=== PATIENT | male | born 1950 | race American Indian/Alaskan Native ===

== ENCOUNTER 2017-07-03 19:09 | Emergency (ER) | payer MEDICARE ==
[2017-07-03 21:04] LABS: Bilirubin,Urine NEG (Negative); Blood,Urine SM (Negative); Ketones,Urine NEG (Negative); Leukocyte Esterase,Urine TR (Negative); Mucus,Urine FEW /HPF; Nitrite,Urine NEG (Negative); Urobilinogen,Urine < 2.0 mg/dL (<2.0)
[2017-07-04 06:26] LABS: Basophils % (Auto) 0.9 % (0.0-1.8); Eosinophils % (Auto) 2.5 % (0.0-4.3); Hematocrit 38.4 % (35.5-45.6); Hemoglobin 12.8 gm/dl (11.8-15.2); Mean Corpuscular HGB Conc 33 % (32-34); Mean Corpuscular Hemoglobin 30 pg (28-32); Mean Corpuscular Volume 88 fl (84-94); Platelet Count 244 K/mm3 (140-440); Red Blood Count 4.34 M/mm3 (3.65-5.03); Red Cell Distribution Width 14.3 % (13.2-15.2); White Blood Count 7.9 K/mm3 (4.5-11.0)
[2017-07-04 06:51] LABS: Albumin 3.5 g/dL (3.9-5); Albumin/Globulin Ratio 0.8 %; BUN/Creatinine Ratio 12.35; Bilirubin,Total 0.5 mg/dL (0.1-1.2); Calcium 8.6 mg/dL (8.4-10.2); Chloride 104.7 mmol/L (98-107); Potassium 4.5 mmol/L (3.6-5.0); Total Protein 7.7 g/dL (6.3-8.2)
[2017-07-04] MEDS ORDERED: CEPHULAC PO ONE (07:06)
[2017-07-04] MEDS ORDERED: NACL 0.9% 1000 ML 1,000 ML IV ONE (07:06)
--- NOTE | 2017-07-04 07:24 | Emergency Department Report ---
ED Abdominal Pain HPI - General Chief Complaint: Back Pain/Injury Stated Complaint: NO BM 3+DAYS/SENT BY PHYSICIAN Time Seen by Provider: 07/04/17 06:56 Source: patient, RN/MD Mode of arrival: Ambulatory Limitations: Physical Limitation - History of Present Illness Initial Comments: 66-year-old male with a past medical history diabetes, HIV (CD4/viral load unknown), and hypertension presents to the hospital complaining of inability have a bowel movement 3 days and unable to urinate in 2 days. Patient took Epsom salts without improvement. Greater generalized abdominal pain rated 10/ 10 intensity for, patient is not in any acute distress. Denies nausea, vomiting , or fever. Denies previous abdominal surgeries or previous difficulty urinating. Mild dysuria reported. Sent by PMD for evaluation Severity scale (0 -10): 10 - Related Data Previous Rx's Medication Instructions Recorded Last Taken Type Polyethylene Glycol 3350 [Miralax 17 gm PO QDAY PRN #7 packet 07/04/17 Unknown Rx 3350] Allergies Allergy/AdvReac Type Severity Reaction Status Date / Time No Known Allergies Allergy Unverified 07/03/17 20:05 ED Review of Systems ROS: Stated complaint: NO BM 3+DAYS/SENT BY PHYSICIAN Other details as noted in HPI Comment: All other systems reviewed and negative Other: Constitutional: No fevers chills Eyes: No eye pain visual changes or discharge ENT: No ear pain or throat pain Neck: Denies pain Respiratory: Denies cough wheezing shortness of breath Cardiovascular: Denies chest pain, palpitations, syncope GI: As per HPI : As per HPI Musculoskeletal: Denies back pain, joint swelling Skin: Denies rash, lesions, erythema Neurologic: Denies headache, numbness, weakness Psychiatric: Denies suicidal ideation, hallucinations Hematological/lymphatic: Denies easy bruising, lymphadenopathy ED Past Medical Hx - Past Medical History Previous Medical History?: Yes Hx Hypertension: Yes Hx Diabetes: Yes Hx Headaches / Migraines: Yes Hx HIV: Yes - Surgical History Past Surgical History?: Yes Additional Surgical History: VNS stimulator removed - Social History Smoking Status: Current Every Day Smoker Substance Use Type: None - Medications Home Medications: Home Medications Medication Instructions Recorded Confirmed Last Taken Type Polyethylene Glycol 3350 [Miralax 17 gm PO QDAY PRN #7 packet 07/04/17 Unknown Rx 3350] ED Physical Exam - General Limitations: Physical Limitation - Other Other exam information: General: No limitations, patient is alert in no acute distress Head exam: Atraumatic, normocephalic Eyes exam: Normal appearance ENT: Moist mucous membrane, normal oropharynx Neck exam: Normal inspection, full range of motion, no meningismus nontender Respiratory exam: Clear to auscultation bilateral, no wheezes, rales, crackles Cardiovascular: Normal rate and rhythm, normal heart sounds Abdomen: Soft, nondistended, mild generalized tenderness, increased bowel sounds , no rebound or guarding : Gee catheter placed prior to arrival with initial output documented as 30 mL by R in Extremity: Full range of motion normal inspection no deformity Back: Normal Inspection, full range of motion, no tenderness Neurologic: Alert, oriented x3, cranial nerves intact, no motor or sensory deficit Psychiatric: normal affect, normal mood Skin: Warm, dry, intact ED Course Vital Signs 07/03/17 07/03/17 07/04/17 19:40 20:05 03:26 Temperature 98.6 F 98.6 F Pulse Rate 88 88 78 Respiratory 18 18 17 Rate Blood Pressure 128/82 Blood Pressure 128/82 [Right] O2 Sat by Pulse 100 100 100 Oximetry 07/04/17 07/04/17 07/04/17 03:31 03:45 03:53 Temperature Pulse Rate 77 75 Respiratory 16 13 16 Rate Blood Pressure 123/70 123/70 Blood Pressure [Right] O2 Sat by Pulse 99 100 98 Oximetry 07/04/17 07/04/17 07/04/17 04:01 04:18 05:00 Temperature Pulse Rate 71 75 75 Respiratory 18 21 17 Rate Blood Pressure 141/76 132/58 Blood Pressure 141/76 [Right] O2 Sat by Pulse 98 99 Oximetry 07/04/17 06:01 Temperature Pulse Rate 74 Respiratory 20 Rate Blood Pressure 132/58 Blood Pressure [Right] O2 Sat by Pulse 97 Oximetry - Reevaluation(s) Reevaluation #1: 07/04/17 10:44 Patient received a soapsuds enema and lactulose. Patient had had little to no stool output but pt had whole pecans come out of rectum which he said he ate last week. Patient received 1 L of normal saline and regular insulin with improvement and glucose - Consultations Consultation #1: 07/04/17 10:42 This was discussed with patient's primary care doctor Dr. Morton. She last saw pt on June 26. Suspect that patient call the office and was advised to come to the ED versus being seen. Last lab work from June 26 shows normal renal function and bicarbonate. She was therefore of patient's ED workup including renal sufficiency, bicarbonate 17, an unremarkable imaging studies and urine cath result. She recommends follow-up on Saturday. Copy of labs and imaging studies will be provided for follow-up visit. ED Medical Decision Making - Lab Data Result diagrams: 07/04/17 05:58 07/04/17 05:58 Lab Results 07/03/17 07/04/17 07/04/17 Range/Units 20:50 05:58 05:58 WBC 7.9 (4.5-11.0) K/mm3 RBC 4.34 (3.65-5.03) M/mm3 Hgb 12.8 (11.8-15.2) gm/dl Hct 38.4 (35.5-45.6) % MCV 88 (84-94) fl MCH 30 (28-32) pg MCHC 33 (32-34) % RDW 14.3 (13.2-15.2) % Plt Count 244 (140-440) K/mm3 Lymph % (Auto) 34.0 (13.4-35.0) % Bartholomew % (Auto) 9.8 H (0.0-7.3) % Eos % (Auto) 2.5 (0.0-4.3) % Baso % (Auto) 0.9 (0.0-1.8) % Lymph # 2.7 (1.2-5.4) K/mm3 Bartholomew # 0.8 (0.0-0.8) K/mm3 Eos # 0.2 (0.0-0.4) K/mm3 Baso # 0.1 (0.0-0.1) K/mm3 Seg Neutrophils % 52.8 (40.0-70.0) % Seg Neutrophils # 4.2 (1.8-7.7) K/mm3 Sodium 134 L (137-145) mmol/L Potassium 4.5 (3.6-5.0) mmol/L Chloride 104.7 (98-107) mmol/L Carbon Dioxide 17 L (22-30) mmol/L Anion Gap 17 mmol/L BUN 21 H (9-20) mg/dL Creatinine 1.7 H (0.8-1.5) mg/dL Estimated GFR 49 ml/min BUN/Creatinine Ratio 12.35 % Glucose 282 H (75-100) mg/dL Calcium 8.6 (8.4-10.2) mg/dL Total Bilirubin 0.50 (0.1-1.2) mg/dL AST 15 (5-40) units/L ALT 16 (7-56) units/L Alkaline Phosphatase 83 (35-129) units/L Total Protein 7.7 (6.3-8.2) g/dL Albumin 3.5 L (3.9-5) g/dL Albumin/Globulin Ratio 0.8 % Urine Color Yellow (Yellow) Urine Turbidity Cloudy (Clear) Urine pH 5.0 (5.0-7.0) Ur Specific [place] 1.016 (1.003-1.030) Urine Protein 100 mg/dl (Negative) mg/dL Urine Glucose (UA) 50 (Negative) mg/dL Urine Ketones Neg (Negative) mg/dL Urine Blood Sm (Negative) Urine Nitrite Neg (Negative) Urine Bilirubin Neg (Negative) Urine Urobilinogen < 2.0 (<2.0) mg/dL Ur Leukocyte Esterase Tr (Negative) Urine WBC (Auto) 1.0 (0.0-6.0) /HPF Urine RBC (Auto) 6.0 (0.0-6.0) /HPF U Epithel Cells (Auto) 1.0 (0-13.0) /HPF Hyaline Casts 2 /LPF Urine Mucus Few /HPF - Radiology Data Radiology results: report reviewed Abdominal x-ray PA and lateral: No significant fecal retention. CT abdomen and pelvis without contrast: Unremarkable CT abdomen and pelvis. - Medical Decision Making No significant imaging findings of constipation. Soapsuds enema was performed with return of pecans but no significant stool. Patient states he pecans sometime later this week. Patient reports difficulty urinating that only 30 mL obtained with Gee catheter insertion. Patient states he has been able to urinate but a little at a time.. Gee catheter will be removed. Urology follow-up will be encouraged. - Differential Diagnosis constipation, obstruction, urinary retention, UTI Critical Care Time: No Critical care attestation.: If time is entered above; I have spent that time in minutes in the direct care of this critically ill patient, excluding procedure time. ED Disposition Clinical Impression: Abdominal pain, Difficulty urinating, Renal insufficiency, HIV (human immunodeficiency virus infection), Diabetes Disposition: DC-01 TO HOME OR SELFCARE Is pt being admited?: No Condition: Stable Instructions: Constipation (ED), Urinary Retention in Men (ED), Impaired Kidney Function (ED), Diabetes Mellitus Type 2 in Adults (ED) Additional Instructions: Your kidney function slightly abnormal today. Please follow-up with the kidney specialist is provided for further evaluation and management. CAT scan and abdominal x-ray did not show any significant stool retention/constipation even though he reports decreased bowel movements. Drink plenty of fluids, increase fiber in your diet, and take the laxative provided as needed. Follow-up with the urologist provided for further evaluation of your urinary dysfunction. Prescriptions: Polyethylene Glycol 3350 [Miralax 3350] 17 gm PO QDAY PRN #7 packet PRN Reason: Constipation Referrals: MICHAEL ESPINOSA MD [Staff Physician] - 3-5 Days (kidney doctor) CODY BROOKS MD [Staff Physician] - 3-5 Days (urologist) CHRISTAL MORTON MD [Referring] - 07/08/17 (primary care doctor ) Time of Disposition: 10:20
--- NOTE | 2017-07-04 07:26 | XRay Report ---
ABDOMEN, 2 views: History: Abdominal pain, constipation. There is no evidence of free air beneath the diaphragms. The gas pattern within the abdomen is unremarkable. There is no evidence of bowel dilatation, significant air-fluid levels, or pathologic calcifications. Organ shadows are unremarkable. IMPRESSION: Unremarkable abdomen. No significant fecal retention.
--- NOTE | 2017-07-04 09:47 | Cat Scan Report ---
CT OF THE ABDOMEN AND PELVIS WITHOUT CONTRAST HISTORY: Abdominal pain, constipation, decreased urine out put. TECHNIQUE: Helical CT without contrast. Sagittal and coronal reformatted images. FINDINGS: Within the limits of a noncontrast exam, the abdominal and pelvic viscera are within normal limits. The liver, biliary system, pancreas, spleen, kidneys, adrenal glands and bladder are unremarkable. A Gee catheter decompresses the bladder. The bowel loops are normal caliber and wall thickness. Normal appendix. The aorta is normal caliber. No ascites, bulky adenopathy or inflammatory changes. The lung bases are clear. Normal heart size. No suspicious bony lesion. IMPRESSION: Unremarkable noncontrast CT of the abdomen and pelvis.
[2017-07-04] MEDS ORDERED: ATIVAN IV ONE (11:04)
[2017-07-04 11:47] VITALS: BP 128/83
== END 2017-07-04 11:47 | disposition home or self-care (01) ==
LOC: ED 19:09
DX: N28.9 Disorder of kidney and ureter, unspecified (principal); E11.9 Type 2 diabetes mellitus without complications; R39.198 Other difficulties with micturition; R10.9 Unspecified abdominal pain; I10 Essential (primary) hypertension; G43.909 Migraine, unspecified, not intractable, without status migrainosus; F17.200 Nicotine dependence, unspecified, uncomplicated
CPT/HCPCS: 36415; 51702; 74020; 74176; 80053; 81001; 82962; 85025; 96361; 96374; 96375; 99285; J2060; J7030; J1815